=== PATIENT | female | born 1960 | race Caucasian/White ===

== ENCOUNTER 2020-12-07 10:07 | Outpatient (REF) | payer BC, SELFPAY ==
[2020-12-07 13:33] LABS: Abs Immature Grans 0.01 10^3/uL (0.0-0.06); Absolute Basophil Count 0.03 10^3/uL (0.0-0.2); Absolute Eosinophil Count 0.47 10^3/uL (0.0-0.7); Absolute Lymphocyte Count 2.11 10^3/uL (1.2-3.4); Absolute Monocyte Count 0.49 10^3/uL (0.1-0.8); Absolute Neutrophil Count 3.42 10^3/uL (1.2-6.7); Basophils % 0.5; Eosinophils % 7.2; HCT 37.1 % (36.0-46.0); HGB 12.1 g/dL (11.2-15.7); Immature Grans % 0.2; Lymphocytes % 32.3; MCH 32.4 pg (27.0-33.0); MCHC 32.6 % (32.0-36.0); MCV 99.2 fL (80-95); MPV 10.3 fL (8.0-11.0); Monocytes % 7.5; Neutrophils % 52.3; Nucleated RBC 0 %; Platelet Count 430 10^3/uL (130-400); RBC 3.74 10^6/uL (3.93-5.22); RDW 13.5 % (11.7-14.6); RDW-SD 49.1 fL; WBC 6.53 10^3/uL (4.4-10.8)
[2020-12-07 13:53] LABS: ALT 22 U/L (14-59); AST 15 U/L (15-37); Albumin 3.7 g/dL (3.4-5.0); Alkaline Phosphatase 64 U/L (46-116); Anion Gap 1.2 mmol/L (3-11); BUN 13 mg/dL (7-18); Bilirubin, Total 0.6 mg/dL (0.2-1.0); CO2 29.8 mmol/L (21.0-32.0); CREATININE 0.7 mg/dL (0.55-1.02); Calcium 9.1 mg/dL (8.5-10.1); Calculated LDL 110 mg/dL (<100); Chloride 106 mmol/L (98-107); Cholesterol 202 mg/dL (<200); Glucose 91 mg/dL (74-106); HDL Cholesterol 80 mg/dL (40-60); Sodium 137 mmol/L (136-145); Triglyceride 60 mg/dL (<150)
[2020-12-08 09:23] LABS: CA 125 6 U/mL (<30)
[2020-12-08 17:21] LABS: Vitamin B12 514 pg/mL (211-911)
== END 2020-12-07 10:08 | disposition home or self-care (01) ==
LOC: NCHCN 10:07
PROVIDERS: PCP Nurse Practitioner Community Health; Visit Provider Nurse Practitioner Community Health
DX: D64.9 Anemia, unspecified (principal); R10.9 Unspecified abdominal pain; I25.10 Atherosclerotic heart disease of native coronary artery without angina pectoris; Z13.220 Encounter for screening for lipoid disorders; Z85.43 Personal history of malignant neoplasm of ovary
CPT/HCPCS: 80053; 80061; 86304; 82607; 82746; 85025

== ENCOUNTER 2020-12-29 02:23 | Outpatient (CLI) | payer BC, SELFPAY ==
--- NOTE | 2020-12-29 | DI.MAMMO_ITS ---
EXAM: MG MAMMO SCREENING CLINICAL HISTORY: SCREENING, Z12.39 TECHNIQUE: Bilateral full field digital CC and MLO mammographic images were obtained with 3D tomosyn thesis and utilizing computer aided detection (CAD). COMPARISON: Available for comparison. FINDINGS: Masses/Architectural Distortion: None seen. Microcalcifications: No suspicious pleomorphic-type are seen. Skin Thickening/Nipple Retraction: None. IMPRESSION: 1. No significant interval change with no specific features of malignancy noted. 2. Unless there is more urgent need, screening mammography is recommended, as per [employer] guidelines. BI-RADS Category 1 - Negative Breast Density - Category C - Heterogeneously dense Breast density category C or D implies that the patient has dense breast tissue. Dense breast tissue is very common and is not abnormal but dense breast tissue can make it harder to find cancer on a ma mmogram. Also, dense breast tissue may increase their breast cancer risk. This information about the result of the mammogram report was provided to the patient to raise their awareness. Use this report when you speak with the patient about their risks for breast cancer, which includes their family hist ory. At that time, you may recommend for more screening tests (Ultrasound or MRI) as they might be us eful based on their risk. A negative radiographic report should not delay biopsy if a dominant or clinically suspicious mass is present. Up to ten percent of cancers are not identified on mammography. A negative report may reinforce clinical impression. Adenosis and dense breasts may obscure an underlying neoplasm. False positive reports average 6 to 10%. Patient will receive a letter notifying them of these results.
--- NOTE | 2020-12-29 | DI.DEXA_ITS ---
EXAM: XR DEXA BONE DENSITY W/WO DAVIDSON CLINICAL HISTORY: OSTEOPENIA,M85.80 TECHNIQUE: Routine DEXA evaluation of the lumbar spine, hip, or forearm. COMPARISON: No exams were available for comparison FINDINGS: Performed on a Hologic unit. Lateral image: No compression fracture evident. Lumbar Spine total T-score: -2.4 centimeter this is osteopenia range Hip total T-score: -1.3; this is osteopenia range Independent reading at the left femoral neck level yields a T-score of -2.7 which is in the osteoporo sis range. Forearm total T-score: -1.4 IMPRESSION: Bone mineral density measures in the osteopenia-osteoporosis range. Fracture risk is moderate-high. Note: Any spine fracture indicates 5x risk for subsequent spine fracture and 2x risk for subsequent h ip fracture. World Health Organization criteria for BMD interpretation classify patients: Normal...... T- Score at or above -1.0 Osteopenic... T- Score between -1.0 and -2.5 Osteoporosis... T-Score at or below -2.5
--- NOTE | 2020-12-29 | DI.US_ITS ---
APPROVED REPORT EXAM: Comprehensive 2D, Doppler, and color-flow Echocardiogram Patient Location: Out-Patient Piler: Elyssa Love RDCS (AE) Indications: Systolic Heart Murmur Other Information Study Quality: Adequate Conclusion Normal left ventricular wall thickness and chamber size. Estimated ejection fraction is approximatel y 60%. Wall motion is normal Normal right ventricular size and systolic function Atria are normal in size The aortic valve is trileaflet without stenosis or regurgitation Structurally normal mitral valve with very mild prolapse, trace regurgitation Normal tricuspid valve with mild right regurgitation. Estimated right ventricular systolic pressure is normal Normal pulmonic valve Wall motion Left Ventricle The left ventricle is normal size. The left ventricular systolic function is normal. The left ventric ular ejection fraction is within the normal range. There is normal left ventricular wall thickness. T here is normal LV segmental wall motion. LVEF is 59%. Right Ventricle The right ventricle is normal size. The right ventricular systolic function is normal. The RVSP is 24 .3 mmHg. Atria The left atrium size is normal. The right atrium size is normal. The interatrial septum is intact wit h no evidence for an atrial septal defect. Aortic Valve The aortic valve is normal in structure. Aortic valve is trileaflet. There is no aortic valvular sten osis. No aortic regurgitation is present. Mitral Valve The mitral valve is normal in structure. No evidence of mitral valve stenosis. Trace mitral regurgita tion. Mild mitral valve prolapse. Tricuspid Valve The tricuspid valve is normal in structure. There is no tricuspid valve stenosis. Mild tricuspid regu rgitation. Pulmonic Valve The pulmonary valve is normal in structure. There is no pulmonic valvular stenosis. There is no pulmo oscar valvular regurgitation. Great Vessels The aortic root is normal in size. The ascending aorta is normal in size. Aortic arch is normal in ca liber. IVC is normal in size and collapses >50% with inspiration. Pericardium There is no pericardial effusion. 2D Dimensions IVSD d PLAX 0.67 cm F: 0.6-1.0 LV Vol A2C d MOD 93.8 mL LVPW d PLAX 0.68 cm F: 0.6 - 1.0 LV Vol A4C d MOD 83.2 mL LVID d PLAX 4.30 cm F: 3.8 - 5.2 LA vol/ BSA A2C s A-L 11.0 mL/m2 LVDs 2.95 cm F: 2.2 - 3.5 LA vol/ BSA A4C s A-L 13.2 mL/m2 Ao Root d 2.94 cm F: 2.7 - 3.3 LA Vol/ BSA Biplane s A-L 12.5 mL/m2 RA Area A4C 11.74 cm2 LA Area A4C s MOD 10.14 cm2 RA Vol/ BSA A4C s A-L 15.1 mL/m2 LA Area A2C s MOD 9.62 cm2 Ao Asc Diam d 2.82 cm F: 2.3 - 3.1 LV EF A4C MOD 57.9 % LV EF Teichholz 58.2 % LV EF A2C MOD 58.8 % LVEF (Broussard's) 56.93 % F: 54 - 74 LV EF Biplane MOD 56.9 % LV Volume 73.36 mL F: 46 - 106 SV 53.37 mL LV Volume Index 41.44 mL/m2 F: 29 - 61 SV Index 30.17 mL/m2 LV Vol Biplane MOD 93.7 mL FS 30.45 % M-Mode TAPSE 2.42 cm (M/F) >1.7 LV Diastology MV E' medial 0.098 (>0.07 m/s) E/A Ratio 1.0 LV E/e MED 6.15 (<14) MV E Vmax 0.60 (0.4-1.3 m/s) MV E' lateral 0.146 (>0.1 m/s) MV A Vmax 0.60 (0.4-1.3 m/s) LV E/e LAT 4.10 (<14) MV E/A Ratio 0.93 MV E/E' medial 6.17 MV E/E' lateral 4.14 Aortic Valve LVOT Area 2.94 cm2 AoV Area Vmax 2.23 cm2 LVOT Vmax 1.07 m/s AoV Area/ BSA (Vmax) 1.26 cm2/m2 LVOT Mean Sergio. 0.69 m/s QUITA Mean Sergio. 1.91 cm2 LVOT Peak Grad 4.6 mmHg QUITA Mean Sergio. Index 1.08 cm2/m2 LVOT Mean Grad 2.2 mmHg LVOT VTI 0.211 m LVOT Diam s 1.90 cm AoV Vmax 1.42 m/s Velocity Ratio 0.75 AoV Mean Sergio. 1.06 m/s AoV Peak Grad 8.0 mmHg LVOT SV 61.91 mL AoV Mean Grad 4.8 mmHg AoV VTI 0.286 m AoV Area VTI 2.16 cm2 AoV Area/ BSA (VTI) 1.22 cm/m2 Mitral Valve MV DT 210 (160-240 msec) MV PHT 61 msec MV Area PHT 3.61 cm2 MV VTI 0.204 m MV Area VTI 3.04 (4.0-6.0 cm2) Pulmonary Valve PV Vmax 0.78 (0.5-1.5 m/s) RVOT Peak Gr. 2.39 mmHg PV Peak Grad 2.5 mmHg RVOT Mean Gr. 1.15 mmHg PV Mean Grad 1.5 mmHg RVOT VTI 0.159 m PV VTI 0.165 m RVOT Vmax 0.77 m/s Tricuspid Valve TR Peak Grad 21.3 mmHg TR Vmax 2.31 m/s RA Pressure 3.00 mmHg RVSP (TR) 24.3 mmHg
== END 2020-12-29 02:43 ==
PROVIDERS: PCP Nurse Practitioner Community Health; Visit Provider Nurse Practitioner Community Health
DX: M85.89 Other specified disorders of bone density and structure, multiple sites (principal); Z12.31 Encounter for screening mammogram for malignant neoplasm of breast; R01.1 Cardiac murmur, unspecified; I08.1 Rheumatic disorders of both mitral and tricuspid valves
CPT/HCPCS: 77063; 77067; 77080; 93306

== ENCOUNTER 2021-07-07 01:24 | Outpatient (CLI) | payer BC, SELFPAY ==
[2021-07-07 10:22] LABS: Source Nasal/Nares
[2021-07-07 13:32] LABS: COVID-19 PCR Negative (Negative)
== END 2021-07-07 01:25 | disposition home or self-care (01) ==
LOC: LBO 01:24
PROVIDERS: PCP Nurse Practitioner Community Health; Visit Provider Surgery
DX: Z20.822 Contact with and (suspected) exposure to COVID-19 (principal)
CPT/HCPCS: 87635

== ENCOUNTER 2021-07-10 06:12 | Day surgery (SDC) | payer BC, SELFPAY ==
--- NOTE | 2021-07-09 08:46 | W.ANESPRE ---
General Info Date of Service Date Performed: 07/10/21 Height: 5 ft 8 in Weight: 67.132 kg Body Mass Index (BMI): 22.5 Surgical Procedure: Operation Date: 07/10/21 07:35 Proposed Procedures Side Surgeon p Colonoscopy Montse Borges MD Meds Allergies and Home Medications Allergies Allergy/AdvReac Type Severity Reaction Status Date / Time No Known Allergies Allergy Verified 07/10/21 06:29 Home Medication Medication Instructions Recorded bisacodyl 5 mg tablet,delayed 5 mg PO ONCE #4 tab 06/23/21 release cholecalciferol (vitamin D3) 50 50 mcg PO DAILY 06/23/21 mcg (2,000 unit) capsule multivitamin 1 tab PO DAILY 06/23/21 polyethylene glycol 3350 17 238 g PO ONCE #238 g 06/23/21 gram/dose oral powder Current Visit Medications: Current Medications Generic Name Dose Route Start Last Admin Trade Name Freq PRN Reason Stop Dose Admin Ringer's Solution 1,000 mls @ 80 mls/hr 07/10/21 06:00 IV 08/06/21 23:59 INFUSION MOHAN IV Miscellaneous Supplies 1 each 07/10/21 06:00 Iv Access IV 08/06/21 23:59 DIRECTED MOHAN Sodium Chloride 0 ml 07/10/21 06:00 Normal Saline Flush 10 Ml Syr IV 08/06/21 23:59 PRN PRN Sodium Chloride 0 ml 07/10/21 06:00 Normal Saline 10 Ml Vial IJ 08/06/21 23:59 DIRECTED PRN Sterile Water 0 ml 07/10/21 06:00 Water,Injection,Sterile 10 Ml Vial IJ 08/06/21 23:59 DIRECTED PRN PFSH Active Problems Active Problems: Problem Status Onset Code Fatigue R53.83 Systolic murmur R01.1 Screening for colon cancer Z12.11 Medical History Medical History (Updated 06/21/21 @ 15:52 by Unique Ibrahim RN) Acute abdominal pain History of gallstones History of ovarian cancer History of small bowel obstruction Surgical History Surgical History (Updated 06/23/21 @ 14:13 by Unique Ibrahim RN) H/O splenectomy (~2002) H/O total hysterectomy (~2002) History of appendectomy (~2002) History of bowel resection (~2005) [place] [facility] Tobacco Smoking/Tobacco Use Status: Never Alcohol Alcohol Intake: current Alcohol intake frequency: a few times a month Substance Use Substance use type: does not use Vital Signs and Lab Results Vital Signs Most Recent Vital Signs in EMR: Temp Pulse Resp BP Pulse Ox 36.1 C L 81 16 105/74 98 07/10/21 06:23 07/10/21 06:23 07/10/21 06:23 07/10/21 06:23 07/10/21 06:23 Lab Results Blood Type / Crossmatch: No Data to Display Complete Blood Count: No Data to Display Complete Metabolic Panel: No Data to Display Liver Function Panel: No Data to Display Coagulation Panel: No Data to Display Cardiac Panel: No Data to Display Arterial Blood Gas: No Data to Display Venous Blood Gas: No Data to Display Pancreas Panel: No Data to Display Thyroid Panel: No Data to Display Infectious Disease: Coronavirus (COVID-19)(PCR) Negative (Negative) 07/07/21 08:46 07/07/21 Coronavirus 2019 Source Nasal/Nares 07/07/21 08:46 07/07/21 Blood Cultures: No Data to Display Toxicology Panel: No Data to Display Imaging and Studies Imaging and Studies Echocardiogram Summary: 12/2020: LVEF 60%, mild MVP, trace MR. Anesthesia Assessment and Plan Anesthesia History Personal History: No History of Anesthesia Complications Family History: No Family History of Anesthesia Complications Exercise Tolerance Exercise Tolerance: Metabolic Equivalents>4 Cardiac & Pulmonary Exam Cardiac Exam: Normal S1/S2 Heart Sounds Pulmonary Exam: Clear Bilateral Breath Sounds Airway Exam Known Difficult Airway: No Mallampati Class: 2 Mouth Opening: Narrow (< 3cm) Thyromental Distance: Greater than 3 cm Neck Range of Motion: Full ROM Neck Circumference: Normal Teeth Condition: Normal Dentition, Removable Dentures/Plates Upper and Other (multiple missing) ASA Classification ASA Score: ASA 2 Emergency Case?: No NPO Status NPO Status: NPO Clears >2 hours, Solids >8 hours Anesthesia Plan Resuscitation Status: Full Code Anesthesia Technique: General Anesthesia Airway Planned: Natural Airway Monitors Used: Standard Monitors Preoperative Comments:: 60 yo female for colonoscopy, last was 5 years ago, she has a recommend f/u in 3 years. Sig PMHx: no major issues, history of hyster/splenectomy/SBO. never smoker. occ EtOH.
[2021-07-10 06:23] VITALS: BP 105/74; PULSE 81; RESP 16; TEMP 36.1; O2SAT 98
--- NOTE | 2021-07-10 06:35 | W.COLOREPORT ---
Colonoscopy Report Date of procedure: 07/10/21 Pre-op diagnosis general: Hx of polyps Post-op diagnosis procedure note: other (sigmoid colon polyp) Procedure: Colonoscopy with polypectomy Surgeon: Montse Borges Anesthesia Type: General:No Airway (ASA 2/ Florentino Molina CRNA) Estimated blood loss (mL): 2 Pathology: other (sigmoid polyp) Complications: None Disposition: same day Indications: The patient is here for Colonoscopy pre-op. Last Colonoscopy reported to be 5 years (Will request these documents). She has no family history of colon cancer. She has not had any bowel habit changes. -Discussed colonoscopy bowel prep as well as the procedure. Discussed possible complications of the procedure to include bleeding, pain, perforation, missed small lesion/polyp, sore throat, aspiration and adverse reaction to the medications. Questions were answered to patient?s satisfaction. No guarantees were implied or given. Prep: Miralax/Dulcolax Procedure Start Time: 07:16 Procedure End Time: 07:52 Retraction Time: 18 minutes Findings: 1 small sigmoid polyp Procedure Description: After informed consent was obtained the patient was taken to the procedure room and placed in a left decubitous position. Monitors were applied and a time out was done. The patients name, date of , procedure, allergies to medications and metal in their body was reviewed. The patient was then sedated. Once sedated and comfortable a rectal exam was done. External exam was normal. Internal exam revealed a normal sphincter tone and no palpable masses. The scope was then introduced and retro-flexed. No internal hemorrhoids, polyps or masses were identified on retro-flexion. The scope was then advanced to the cecum without difficulty. The ileocecal vlave and appendiceal orifice were identified. The prep was adequate. The scope was then slowly retracted over 18 minutes back into the rectum. Polyps were removed with cold forceps in the sigmoid colon. There was no diverticulosis noted. The scope was removed and the patient was woken up and taken back to Same day surgery in stable condition. The patient tolerated the procedure well and there were no immediate complications. Follow up: The patient should follow up in 5 years unless they develop changes in bowel habits or other new gastrointestinal complaints.
--- NOTE | 2021-07-10 06:38 | W.PM.DSUDISC ---
Discharge Plan Disposition Patient Disposition: HOME Condition: Good Discharge Details Reason For Visit: Colonoscopy Attending Provider: Montse Borges Primary Care Provider: Maria Elena Londono Home Meds and New Rx's Prescriptions: Continued multivitamin Tablet 1 tab PO DAILY RF: 0 cholecalciferol (vitamin D3) 50 mcg (2,000 unit) capsule 50 mcg PO DAILY RF: 0 Discontinued polyethylene glycol 3350 17 gram/dose powder 238 g PO ONCE Qty: 238 RF: 0 bisacodyl [Dulcolax (bisacodyl)] 5 mg tablet,delayed release (DR/EC) 5 mg PO ONCE Qty: 4 RF: 0 Discharge Instructions Additional Instructions: Findings: One small polyp Follow up: 5 years Please call if you develop: fevers >101.5 Nausea or Vomiting Abdominal pain that is not transient Rectal bleeding that is more then a tbsp A hard abdomen and inability to pass gas DAY SURGERY UNIT POST ENDOSCOPY INSTRUCTIONS Instructions for everyone who is given Anesthesia: For your safety, please do the following for the next 24 Hours: a. Do not drive or operate dangerous equipment b. Do not drink alcohol beverages or use any recreational drugs for the first 24 hours or while taking pain medications. The medications in your body may have a reaction that can be dangerous. c. Do not make any important decisions or sign any important papers 1. Generally there are no restrictions on your activity after a day or so has gone by, but you may feel a bit fatigued for a few days. 2. After you arrive home you may have a light meal and return to a normal diet as you can tolerate it without feeling sick to your stomach. 3. After surgery, you may feel pain or discomfort. This should be only transient, but if it persists please contact your doctor. 4. If there are any questions regarding the findings of your procedure, please feel free to contact your doctor. 6. If you are unable to contact your doctor with a problem, contact the hospital at [phone]. 7. Continue all your regular medications unless directed otherwise. I understand the above instructions and have no questions. Signature of Patient or Responsible Adult Escort Date/Time Name of Responsible Adult Escort Signature of Nurse Date/Time Activity:: Activity as Tolerated Diet:: As Tolerated Discharge Orders Discharge Orders: Discharge Order (Routine); Ordered 07/10/21 Ordered By: Montse Borges
[2021-07-10 06:40] VITALS: BMI 22.5
[2021-07-10] MEDS: Lactated Ringers 1,000 ML 80 ML IV (06:59)
--- NOTE | 2021-07-10 07:49 | BOWEL_PTH ---
PATIENT: Ambar Rodriguez LOC: [facility] U#:[id number] AGE/SX: 60/F ROOM: RE07/10/[address]: Montse Borges MD : 1960 BED: DIS: 07/10/2021 SPEC #: [id number] RECD: 07/10/21 12:31 STATUS: RICHARD RENisreen #: [id number] KRISTIAN: 07/10/21 07:[address]: Montse Borges DEPT: Surgical Specimen RECD BY: Alma Delia Paul ENTERED: 07/10/21 12:32 SP TYPE: Bowel OTHR DR: Maria Elena Londono Tissues: 1 - BIOPSY BOWEL Procedures: GROSS AND MICRO LEVEL 4 Comments: [id number]
[2021-07-10 08:01] VITALS: BP 95/48; PULSE 72; RESP 18; TEMP 37.1; O2SAT 96
--- NOTE | 2021-07-10 08:07 | W.ANESPOSTOP ---
Postoperative Evaluation Date, Time and Location Date Performed: 07/10/21 Time Performed: 07:59 Patient Location: Day Surgery Unit Vital Signs Most Recent Imported Vital Signs: Most Recent Vital Signs Temp Pulse Resp BP Pulse Ox 37.1 C 72 18 95/48 L 96 07/10/21 08:01 07/10/21 08:01 07/10/21 08:01 07/10/21 08:01 07/10/21 08:01 Pain Score Most Recent Pain Score: Most Recent Pain Score Pain Level 0 07/10/21 08:01 Assessment Mental Status: Awake (Alert & Oriented to Patient Baseline) Airway and Respiratory Function: Patent airway with normal (patient baseline) respiratory exam Cardiovascular Function: Hemodynamically Stable Hydration Status: Adequately Hydrated Nausea & Vomiting: No Nausea or Vomiting Pain: Pt. Denies Any Pain Peripheral Nerve Block: Patient did not receive a nerve block
[2021-07-10 08:32] VITALS: BP 104/65; PULSE 76; RESP 16; TEMP 36.1; O2SAT 99
== END 2021-07-10 09:04 | disposition home or self-care (01) ==
PROVIDERS: PCP Nurse Practitioner Community Health; Visit Provider Surgery
PROC: 0DJD8ZZ Inspection of Lower Intestinal Tract, Via Natural or Artificial Opening Endoscopic (ICD-10-PCS; CPT 45378; principal; 2021-07-10 07:30)
DX: Z12.11 Encounter for screening for malignant neoplasm of colon (principal); Z85.43 Personal history of malignant neoplasm of ovary; K63.5 Polyp of colon
CPT/HCPCS: 45380; 88305; J2001; J2704

== ENCOUNTER → 2022-05-10 04:17 | Outpatient (CLI) | payer BC, SELFPAY ==
--- NOTE | 2022-05-10 | DI.MAMMO_ITS ---
Exam(s) MAMMO SCREENING EXAM: MAMMO SCREENING CLINICAL HISTORY: SCREENING FOR BREAST CANCER Z12.39. TECHNIQUE: Bilateral full field digital CC and MLO mammographic images were obtained with 3D tomosyn thesis and utilizing computer aided detection (CAD). COMPARISON: Prior mammograms were reviewed, the most recent being December 2020.. Significant family history. Mother diagnosed with breast cancer after age 50 FINDINGS: Fibroglandular tissue pattern is again noted be dense, this somewhat decreasing the sensitivity of th e mammogram for finding hidden underlying lesions. There are no CAD designations. There are no new spiculated masses nor malignant appearing microcalcification groups. There is no significant architectural distortion nor skin thickening-retraction. IMPRESSION: Dense bilateral fibroglandular tissue. No obvious radiographic evidence of malignancy nor significan t change compared to prior mammograms dating back to 2012. BI-RADS Category 1 - Negative Breast Density - Category C - Heterogeneously dense Breast density Category C or D implies that the patient has dense breast tissue. Dense breast tissue can make it harder to find cancer on a mammogram. Dense breast tissue is also associated with an incr eased risk of breast cancer. This information about the result of the mammogram report was provided to the patient to raise their awareness. Use this report when you speak with the patient about their risks for breast cancer, which includes their family history. At that time, you may recommend additional screening tests (Ultrasoun d or MRI) as these tests may add significant information. A negative radiographic report should not delay biopsy if a dominant or clinically suspicious mass is present. Up to ten percent of cancers are not identified on mammography. A negative report may reinforce clinical impression. Adenosis and dense breasts may obscure an underlying neoplasm. False positive reports average 6 to 10%. Patient will receive a letter notifying them of these results.
== END ==
PROVIDERS: PCP Nurse Practitioner Community Health; Visit Provider Nurse Practitioner Family
DX: Z12.31 Encounter for screening mammogram for malignant neoplasm of breast (principal); Z80.3 Family history of malignant neoplasm of breast
CPT/HCPCS: 77063; 77067

== ENCOUNTER 2023-04-23 09:51 | Outpatient (REF) | payer BC, SELFPAY ==
[2023-04-23 16:25] LABS: TSH 1.32 uIU/mL (0.36-3.74)
[2023-04-23 16:47] LABS: Vitamin D 25 Total 36.3 ng/mL (30-100)
[2023-04-24 11:42] LABS: CA 125 12 U/mL (<30)
== END 2023-04-23 09:52 | disposition home or self-care (01) ==
LOC: NCHCN 09:51
PROVIDERS: PCP Nurse Practitioner Family; Visit Provider Nurse Practitioner Family
DX: Z00.00 Encounter for general adult medical examination without abnormal findings (principal); M81.0 Age-related osteoporosis without current pathological fracture; Z85.43 Personal history of malignant neoplasm of ovary; Z13.29 Encounter for screening for other suspected endocrine disorder
CPT/HCPCS: 82306; 86304; 84443

== ENCOUNTER → 2023-05-16 03:39 | Outpatient (CLI) | payer BC, SELFPAY ==
--- NOTE | 2023-05-16 | DI.MAMMO_ITS ---
Exam(s) MAMMO SCREENING EXAM: MAMMO SCREENING CLINICAL HISTORY: SCREENING, Z12.31. TECHNIQUE: Bilateral full field digital CC and MLO mammographic images were obtained with 3D tomosyn thesis and utilizing computer aided detection (CAD). COMPARISON: Prior mammograms were reviewed. FINDINGS: Fibroglandular tissue pattern is again noted be dense, this somewhat decreasing the sensitivity mammo gram for finding hidden underlying lesions. There are no obvious new spiculated masses nor malignant appearing microcalcification groups. There is no significant architectural distortion nor skin thickening-retraction. IMPRESSION: No radiographic evidence of malignancy. BI-RADS Category 1 - Negative Breast Density - Category C - Heterogeneously dense Breast density Category C or D implies that the patient has dense breast tissue. Dense breast tissue can make it harder to find cancer on a mammogram. Dense breast tissue is also associated with an incr eased risk of breast cancer. This information about the result of the mammogram report was provided to the patient to raise their awareness. Use this report when you speak with the patient about their risks for breast cancer, which includes their family history. At that time, you may recommend additional screening tests (Ultrasoun d or MRI) as these tests may add significant information. A negative radiographic report should not delay biopsy if a dominant or clinically suspicious mass is present. Up to ten percent of cancers are not identified on mammography. A negative report may reinforce clinical impression. Adenosis and dense breasts may obscure an underlying neoplasm. False positive reports average 6 to 10%. Patient will receive a letter notifying them of these results.
== END ==
PROVIDERS: PCP Nurse Practitioner Family; Visit Provider Nurse Practitioner Family
DX: Z12.31 Encounter for screening mammogram for malignant neoplasm of breast (principal)
CPT/HCPCS: 77063; 77067

== ENCOUNTER → 2023-07-09 02:12 | Outpatient (CLI) | payer BC, SELFPAY ==
--- NOTE | 2023-07-09 08:00 | DI.US_ITS ---
Exam(s) US NEEDLE LOCAL OTHER WO RAD EXAM: right- thyroid nodule TR5, THYROID NODULE, E04.1 COMPARISON: No exams were available for comparison TECHNIQUE: Ultrasound performed using standard protocol. FINDINGS: Sonography was provided for Dr. Rosario during the performance of a right thyroid nodule biopsy. Ple ase refer to the procedure report for complete details. DATA REPOSITORY:
--- NOTE | 2023-07-09 11:40 | PAPNONF_PTH ---
PATIENT: Ambar Rodriguez LOC: [facility] Pardo#:[id number] AGE/SX: 65/F ROOM: RE07/09/[address]: Iqra Estrada : 1960 BED: DIS: SPEC #: [id number] RECD: 07/09/23 13:11 STATUS: RICHARD RENisreen #: [id number] KRISTIAN: 07/09/23 11:[address]: Iqra Estrada DEPT: [facility] Cytology RECD BY: Alma Delia Paul ENTERED: 07/09/23 13:12 SP TYPE: PAPNENA GÓMEZ DR: Modesta Xiong Tissues: 1 - BODY FLUID CYTO-FINE NEEDLE ASPIRATE-[facility] Procedures: BODY FLUID CYTO-FINE NEEDLE ASPIRATE-[facility] Comments: [id number] (PATH FNA CONSULT) (REFRIGERATED)
--- NOTE | 2023-07-09 11:48 | W.PROCNOTE ---
Date of service: 07/09/23 Time of Service: 11:48 Procedure Note Date of procedure: 07/09/23 Procedure: Ultrasound-guided FNA, right thyroid nodule, pathology present Surgeon/Proceduralist/Physician: Ruslan Rosario Procedure Diagnosis: 1.4 cm TR 5 right-sided thyroid nodule Procedure Indications: Patient is a right-sided TR 5 thyroid nodule meeting criteria for biopsy. Options were explained to the patient regarding further management. She elected to undergo the above procedure. Risks and benefits were discussed at length. The procedure was discussed at length. Consent was obtained prior to procedure. The below was then performed. Procedure Description: Ultrasound was used to localize the right-sided thyroid nodule after the patient was placed in a supine position and prepped and draped in appropriate fashion. 1% lidocaine with 1/100,000 epinephrine was injected in the skin and subcutaneous tissues overlying the thyroid nodule. Using the ultrasound for guidance, a 25-gauge needle was passed repeatedly into the thyroid nodule. The aspirate contained a significant mount of blood and so adequate cellularity could not be assessed. 3 passes were made into the thyroid nodule in different locations and this was placed in CytoLyt and sent to pathology. 2 additional passes were made for potential Afirma testing. The patient tolerated the procedure well. Sterile dressing was applied.. The patient will remove the bandage tonight and not replace it. She will use ibuprofen or Tylenol for any discomfort. She will call with any signs of infection. She will call if she does not hear from me within 1 week with regard to results. She had no further questions. She is comfortable with the plan.
== END ==
PROVIDERS: PCP Nurse Practitioner Family; Visit Provider Registered Nurse Maternal Newborn
DX: E04.1 Nontoxic single thyroid nodule (principal)
CPT/HCPCS: 10005; 76942; 88104

== ENCOUNTER 2023-10-29 15:55 | Outpatient (REF) | payer BC, SELFPAY ==
[2023-10-30 21:50] LABS: CA 125 12 U/mL (<30)
== END 2023-10-29 15:56 | disposition home or self-care (01) ==
LOC: NCHCN 15:55
PROVIDERS: PCP Nurse Practitioner Family; Visit Provider Nurse Practitioner Family
DX: Z85.43 Personal history of malignant neoplasm of ovary (principal)
CPT/HCPCS: 86304

== ENCOUNTER 2024-05-27 02:20 | Outpatient (CLI) | payer BC, SELFPAY ==
--- NOTE | 2024-05-27 06:45 | DI.MAMMO_ITS ---
Exam(s) MAMMO SCREENING EXAM: MAMMO SCREENING CLINICAL HISTORY: screening,z12.39. TECHNIQUE: Bilateral full field digital CC and MLO mammographic images were obtained with 3D tomosyn thesis and utilizing computer aided detection (CAD). COMPARISON: Prior mammograms were reviewed. FINDINGS: There has been no significant change in the appearance and distribution of the fibroglandular tissue which is again noted dense, this somewhat decreasing the sensitivity of the mammogram for finding hid den underlying lesions. There are no CAD designations. There are no obvious new spiculated masses nor malignant appearing microcalcification groups. There is no significant architectural distortion nor skin thickening-retraction. IMPRESSION: No radiographic evidence of malignancy. BI-RADS Category 1 - Negative Breast Density - Category C - Heterogeneously dense Breast density Category C or D implies that the patient has dense breast tissue. Dense breast tissue can make it harder to find cancer on a mammogram. Dense breast tissue is also associated with an incr eased risk of breast cancer. This information about the result of the mammogram report was provided to the patient to raise their awareness. Use this report when you speak with the patient about their risks for breast cancer, which includes their family history. At that time, you may recommend additional screening tests (Ultrasoun d or MRI) as these tests may add significant information. A negative radiographic report should not delay biopsy if a dominant or clinically suspicious mass is present. Up to ten percent of cancers are not identified on mammography. A negative report may reinforce clinical impression. Adenosis and dense breasts may obscure an underlying neoplasm. False positive reports average 6 to 10%. Patient will receive a letter notifying them of these results.
== END 2024-05-27 02:40 ==
LOC: DI 02:20
PROVIDERS: PCP Nurse Practitioner Family; Visit Provider Nurse Practitioner Family
DX: Z12.31 Encounter for screening mammogram for malignant neoplasm of breast (principal)
CPT/HCPCS: 77063; 77067

== ENCOUNTER 2024-05-28 01:35 | Outpatient (CLI) | payer BC, SELFPAY ==
--- NOTE | 2024-05-28 06:45 | DI.DEXA_ITS ---
Exam(s) XR DEXA BONE DENSITY W/WO DAVIDSON EXAM: XR DEXA BONE DENSITY W/WO DAVIDSON CLINICAL HISTORY: evaluate osteoporosis M81.0 OSTEOPOROSIS TECHNIQUE: Hologic Horizon C densitometer analysis of left hip, lumbar spine and left forearm. Lat eral survey image of the thoracic and lumbar spine. COMPARISON: CR XR DEXA BONE DENSITY W/WO DAVIDSON from 12/29/2020 FINDINGS: Lateral view of the thoracic and lumbar spine shows no evidence of compression fractures. Bone mineral density measurements of the lumbar spine correspond to a total T-score of -2.2, in the osteopenic range. This represents a 3.7 percent increase from 2020. Bone mineral density measurements of the left hip correspond to a total T-score of negative 1.6. Th is represents a 5.9 percent decrease when compared with 2020. The femoral neck T-score is -2.7, in the osteoporotic range.. Theleft forearm bone mineral density measurements correspond to a T-score of the distal 3rd of -1.6, in the osteopenic range. This is not significantly changed from 2020.. IMPRESSION: Osteopenia of the lumbar spine and forearm. Osteoporosis of the hip.
== END 2024-05-28 01:55 ==
LOC: DI 01:35
PROVIDERS: PCP Nurse Practitioner Family; Visit Provider Nurse Practitioner Family
DX: M81.0 Age-related osteoporosis without current pathological fracture (principal)
CPT/HCPCS: 77080

== ENCOUNTER 2024-09-03 01:37 | Outpatient (CLI) | payer MEDICARE, BC, SELFPAY ==
[2024-09-03 07:57] LABS: Hemoglobin A1C 5.3 % (<5.7)
[2024-09-03 08:17] LABS: Calculated LDL 114 mg/dL (<100); Cholesterol 216 mg/dL (<200); HDL Cholesterol 95 mg/dL (40-60); Triglyceride 37 mg/dL (<150)
[2024-09-04 09:48] LABS: CA 125 10 U/mL (<30)
== END 2024-09-03 01:38 | disposition home or self-care (01) ==
PROVIDERS: PCP Nurse Practitioner Family; Visit Provider Nurse Practitioner Family
DX: Z85.43 Personal history of malignant neoplasm of ovary
CPT/HCPCS: 36415; 80061; 86304; 83036